=== PATIENT | female | born 1975 | race Caucasian/White ===

== ENCOUNTER 2021-02-19 19:44 | Emergency (ER) | payer SELFPAY ==
[~2021-02-19] VITALS: Ht 167.6 cm; Wt 109.1 kg
[2021-02-19] MEDS ORDERED: ADENOSINE 6 MG/2 ML VIAL. IV ONE ×2 (19:53→20:15)
[2021-02-19 20:08] LABS: HEMOGLOBIN 14.5 g/dL (12.0-15.5); RED BLOOD COUNT 5.25 x10^6/uL (3.50-5.40); RED CELL DISTRIBUTION WIDTH 15.7 % (11.5-14.5); WHITE BLOOD COUNT 17.8 x10^3/uL (4.0-11.0)
[2021-02-19 20:20] LABS: CALCIUM 8.9 mg/dL (8.5-10.1); CREATININE 1.2 mg/dL (0.6-1.0); MAGNESIUM 2.1 mg/dL (1.8-2.4); POTASSIUM 3.9 mmol/L (3.5-5.1)
--- NOTE | 2021-02-19 20:41 | ED.ADGEN ---
General Adult EDM: Chief Complaint: RAPID HEART RATE HPI: HPI: Patient is a 45-year-old female past medical history of SVT presents to the emergency room complaining of SVT. Patient has had 4 prior episodes of SVT. She followed up with a science tutor after the first time and they told her that there was likely not going to happen again. She has not seen a science tutor since that time. She currently does not have insurance. Patient states she started feeling her heart racing and then checked her pulse ox that she carries around with her and her heart rate was 212. She denies any chest pain or shortness of breath. She states that it does give her this feeling of anxiety. Review of Systems: Review of Systems: Complete ROS is negative unless otherwise documented in HPI Current Medications: Current Medications Medications (Trade) Dose Ordered Sig/Rubi Start Time Stop Time Status Last Admin Dose Admin Adenosine (Adenocard) 12 mg 1X ONCE 02/19/21 20:15 02/19/21 20:19 DC Allergies: Allergies: Allergies Coded Allergies Type Severity Reaction Last Updated Verified No Known Drug Allergies 02/19/21 No Physical Exam: PE: General: Awake, alert, NAD. Well Nourished, well hydrated. Cooperative HEENT: Atraumatic, EOMI, PERRL, airway patent, moist oral mucosa Neck: Supple, trachea midline Respiratory: CTA bilaterally, normal effort, no wheezing/crackles CV: Tachycardia, no murmur, cap refill <2 GI: Soft, nondistended, nontender, no masses MSK: No obvious deformities Skin: Warm, dry, intact Neuro: A&O x3, speech NL, sensory and motor grossly intact, no focal deficits Psych: Normal affect, normal mood, not suicidal or homicidal Current Patient Data: Labs: Laboratory Tests Test 02/19/21 19:52 White Blood Count 17.8 x10^3/uL (4.0-11.0) H Red Blood Count 5.25 x10^6/uL (3.50-5.40) Hemoglobin 14.5 g/dL (12.0-15.5) Hematocrit 43.0 % (36.0-47.0) Mean Corpuscular Volume 82 fL (79-100) Mean Corpuscular Hemoglobin 28 pg (25-35) Mean Corpuscular Hemoglobin Concent 34 g/dL (31-37) Red Cell Distribution Width 15.7 % (11.5-14.5) H Platelet Count 330 x10^3/uL (140-400) Sodium Level 135 mmol/L (136-145) L Potassium Level 3.9 mmol/L (3.5-5.1) Chloride Level 104 mmol/L (98-107) Carbon Dioxide Level 21 mmol/L (21-32) Anion Gap 10 (6-14) Blood Urea Nitrogen 16 mg/dL (7-20) Creatinine 1.2 mg/dL (0.6-1.0) H Estimated GFR (Cockcroft-Gault) 49.0 Glucose Level 125 mg/dL (70-99) H Calcium Level 8.9 mg/dL (8.5-10.1) Magnesium Level 2.1 mg/dL (1.8-2.4) Laboratory Tests 02/19/21 19:52 Laboratory Tests 02/19/21 19:52 Vital Signs: Vital Signs Date Time Temp Pulse Resp B/P (MAP) Pulse Ox O2 Delivery O2 Flow Rate FiO2 02/19/21 19:47 98.3 185 18 128/66 (86) 99 Room Air 98.3 EKG: EKG: [] Heart Score: C/O Chest Pain: N/A Risk Factors: Risk Factors: DM, Current or recent (<one month) smoker, HTN, HLP, family history of CAD, obesity. Risk Scores: Score 0 - 3: 2.5% MACE over next 6 weeks - Discharge Home Score 4 - 6: 20.3% MACE over next 6 weeks - Admit for Clinical Observation Score 7 - 10: 72.7% MACE over next 6 weeks - Early Invasive Strategies Radiology/Procedures: Radiology/Procedures: [] Course & Med Decision Making: Course & Med Decision Making Pertinent Labs and Imaging studies reviewed. (See chart for details) Patient is a 45-year-old female with a past medical history of SVT who rpesents to the Emergency Room complaining of SVT. Upon arrival, EKG was performed and shows bin patient is in SVT. Patient does have a history of SVT. On exam, patient is well-appearing with tachycardia. Patient was given adenosine and on re-evaluation patient is in normal sinus rhythm. CBC, BMP, BNP, troponin, EKG, and CXR were ordered to evaluate for causes of arrhythmia and to evaluate for end stage organ damage. Lab work was unremarkable other than an elevated white blood cell count. UA will be done to rule out UTI. Patient has not had any infectious symptoms. It is possible that this is a stress response. Patient will need to follow-up with a special science tutor to help with her repetitive episodes of SVT. Patient would like to go home. At this time she appears to be stable. Patient's test results and vitals while in the ED were fully reviewed and discussed with the patient. Patient is stable and at this time does not need admission to the hospital. We have discussed strict return precautions and the importance of following up with their Primary Care Physician. Patient stated understanding and was given an opportunity to ask any questions. Patient is in agreement with plan. Susan Disclaimer: Susan Disclaimer: This electronic medical record was generated, in whole or in part, using a voice recognition dictation system. Departure Departure Impression: Primary Impression: SVT (supraventricular tachycardia) Disposition: HOME / SELF CARE / HOMELESS Condition: STABLE Referrals: NO PCP (PCP) Patient Instructions: Supraventricular Tachycardia Additional Instructions: [facility]iology FABIAN STOVER MD Feb 19, 2021 20:41
[2021-02-19 20:49] VITALS: BP 108/58
== END 2021-02-19 21:20 | disposition home or self-care (01) ==
LOC: ER 19:44
DX: I47.1 Supraventricular tachycardia (principal)
CPT/HCPCS: 36415; 80048; 83735; 85027; 96374; 99285; J0153

== ENCOUNTER 2021-07-12 19:46 | Emergency (ER) | payer BC ==
[~2021-07-12] VITALS: Ht 167.6 cm; Wt 109.0 kg
--- NOTE | 2021-07-12 19:52 | PHYS DOC ---
Past Medical History Past Medical History: Other Additional Past Medical Histor: SVT Past Surgical History: Cholecystectomy, , Other Additional Past Surgical Histo: ORAL SURGERY Smoking Status: Never Smoker Alcohol Use: Rarely General Adult HPI: HPI: Patient is a 45 year old female who presents with palpitations and concern for SVT. She has a history of recurrent SVT. She is supposed to take oral metoprolol. She missed her dose yesterday. She does occasionally admit to missing doses of this medicine. 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 She denies chest pain or dyspnea. She denies dizziness or syncope. She denies nausea vomiting, diarrhea. She denies urinary symptoms. She denies fall, head injury, syncope, weakness. She responds well to IV adenosine. She tried vagal maneuvers prior to arrival, without success. Symptoms began about an hour prior to arrival. Review of Systems: Review of Systems: Constitutional: Denies fever or chills. [] Eyes: Denies change in visual acuity. [] HENT: Denies nasal congestion or sore throat. [] Respiratory: Denies cough or shortness of breath. [] Cardiovascular: Denies chest pain or edema. Reports palpitations. GI: Denies abdominal pain, nausea, vomiting, or diarrhea. : Denies urinary symptoms. Musculoskeletal: Denies back pain or joint pain. [] Integument: Denies rash. [] Neurologic: Denies headache, focal weakness or sensory changes. Denies dizziness. Endocrine: Denies polyuria or polydipsia. [] Lymphatic: Denies swollen glands. [] Psychiatric: Denies depression or anxiety. [] Heart Score: C/O Chest Pain: No Risk Factors: Risk Factors: DM, Current or recent (<one month) smoker, HTN, HLP, family history of CAD, obesity. Risk Scores: Score 0 - 3: 2.5% MACE over next 6 weeks - Discharge Home Score 4 - 6: 20.3% MACE over next 6 weeks - Admit for Clinical Observation Score 7 - 10: 72.7% MACE over next 6 weeks - Early Invasive Strategies Allergies: Allergies: Allergies Coded Allergies Type Severity Reaction Last Updated Verified No Known Drug Allergies 02/19/21 No Physical Exam: PE: Constitutional: Well developed, well nourished, no acute distress, non-toxic appearance. [] HENT: Normocephalic, atraumatic, mucous membranes are moist. Eyes: Clear are clear, anicteric. Neck: Trachea midline, no JVD, no tenderness Cardiovascular: Tachycardic, regular, rate in the 190s. Lungs & Thorax: Bilateral breath sounds clear to auscultation, no rales, rhonchi or wheezes. No stridor. No distress. Abdomen: Diminished soft, nondistended, nontender to palpation. Skin: Warm, dry, no erythema, no rash. [] Back: No tenderness, no CVA tenderness. [] Extremities: No tenderness, no cyanosis, no clubbing, ROM intact, no edema. No calf tenderness. Neurologic: Alert and oriented X 3, normal motor function, normal sensory function, no focal deficits noted. Speech is clear and fluent. Gait is steady. Psychologic: Affect normal, judgement normal, mood normal. She is pleasant and cooperative. EKG: EKG: EKG is interpreted at 1953 Rhythm is SVT Rate is 185 bpm No STEMI EKG is interpreted at 2021 Rhythm is sinus tachycardia Rate is 102 bpm No STEMI No acute ischemia Radiology/Procedures: Radiology/Procedures: [] Course & Med Decision Making: Course & Med Decision Making The patient is given 1 dose of IV adenosine bolus, 6 mg, which resolved her SVT. Her blood pressure remained stable. She tolerated this very well. Rhythm was sinus tachycardia, then sinus rhythm. She has no complaints. She still denies chest pain or dyspnea. She appears well. She is resting comfortably. I have discussed that I recommend she follow-up with outpatient cardiology. She reports that she is not need any refills of her metoprolol. I told her to continue to maintain compliance with this medication. She is given outpatient information for cardiology services here. She has no complaints, she feels comfortable going home. Strict return precautions are given. Dragon Disclaimer: Dragon Disclaimer: This electronic medical record was generated, in whole or in part, using a voice recognition dictation system. Departure Departure Impression: Primary Impression: Supraventricular tachycardia Disposition: HOME / SELF CARE / HOMELESS Condition: STABLE Referrals: NO PCP (PCP) RAFY ESPOSITO MD, DONALD J MD Patient Instructions: Supraventricular Tachycardia Additional Instructions: Return to the ER for chest pain, shortness of breath, vomiting, dehydration, passing out, weakness, fever of 100.4 or higher, or for any other concerns. If you have recurrent episodes of SVT, please also return to the ER. Continue to take your metoprolol as directed. Please follow-up with your outpatient primary care physician and outpatient cardiology. SERAFIN GOTTLIEB DO Jul 12, 2021 19:52
[2021-07-12] MEDS ORDERED: ADENOSINE 6 MG/2 ML VIAL. IV ONE ×3 (20:00→20:15)
[2021-07-12] MEDS ORDERED: IV NORMAL SALINE 1000ML BAG 1,000 ML IV ONE (20:00)
[2021-07-12 21:18] VITALS: BP 119/58
--- NOTE | 2021-07-13 00:21 | EKG ---
[facility] [address] [place] [address] Test Date: 2021-07-12 Test Time: 20:14:57 Pat Name: AUBRIE PETERSON Department: Room: Gender: F Milieu Counselor: : 1975 Requested By: SERAFIN GOTTLIEB Order Number: [id number] Reading MD: Chris Irby Measurements Intervals [place] Rate: 102 P: 19 [place]: 188 QRS: -23 QRSD: 74 T: 31 QT: 318 QTc: 418 Interpretive Statements SINUS TACHYCARDIA LEFTWARD AXIS Electronically Signed On 07-13-2021 7:13:01 CLINICAL PROJECT MANAGER by Chris Irby
--- NOTE | 2021-07-13 00:21 | EKG ---
[facility] [address] [place] [address] Test Date: 2021-07-12 Test Time: 19:54:47 Pat Name: AUBRIE PETERSON Department: Room: Gender: F Hall Manager: : 1975 Requested By: SERAFIN GOTTLIEB Order Number: [id number] Reading MD: Chris Irby Measurements Intervals [place] Rate: 185 P: [place]: QRS: -28 QRSD: 72 T: 32 QT: 256 QTc: 449 Interpretive Statements SUPRAVENTRICULAR TACHYCARDIA LEFTWARD AXIS Electronically Signed On 07-13-2021 7:13:16 ENGINEER GEOPH[employer]ICAL [employer]ORATORY by Chris Irby
== END 2021-07-12 21:48 | disposition home or self-care (01) ==
LOC: ER 19:46
DX: I47.1 Supraventricular tachycardia (principal); R00.2 Palpitations
CPT/HCPCS: 93005; 96361; 96374; 99285; J0153; J7030

== ENCOUNTER 2021-10-29 17:53 | Emergency (ER) | payer SELFPAY ==
[~2021-10-29] VITALS: Ht 170.2 cm; Wt 110.0 kg
[2021-10-29] MEDS ORDERED: ADENOSINE 6 MG/2 ML VIAL. IV ONE ×2 (18:05→18:15)
[2021-10-29] MEDS ORDERED: IV NORMAL SALINE 1000ML BAG 1,000 ML IV SCH (18:15)
[2021-10-29 18:22] LABS: BASO # 0.2 x10^3/uL (0.0-0.2); BASO % 1 % (0-3); EOS # 0.3 x10^3/uL (0.0-0.7); EOS % 2 % (0-3); HEMATOCRIT 41.6 % (36.0-47.0); HEMOGLOBIN 13.4 g/dL (12.0-15.5); LYMPH # 3.2 x10^3/uL (1.0-4.8); LYMPH % 22 % (24-48); MEAN CORPUSCULAR HEMOGLOBIN 27 pg (25-35); MEAN CORPUSCULAR HGB CONC 32 g/dL (31-37); MEAN CORPUSCULAR VOLUME 82 fL (79-100); MONO # 0.9 x10^3/uL (0.0-1.1); MONO % 6 % (0-9); NEUT # 10.3 x10^3/uL (1.8-7.7); NEUT % 69 % (31-73); PLATELET COUNT 300 x10^3/uL (140-400); RED BLOOD COUNT 5.06 x10^6/uL (3.50-5.40); RED CELL DISTRIBUTION WIDTH 16.2 % (11.5-14.5); WHITE BLOOD COUNT 14.9 x10^3/uL (4.0-11.0)
[2021-10-29 18:25] LABS: CALCIUM 8.6 mg/dL (8.5-10.1); GFR 60.2; POTASSIUM 3.8 mmol/L (3.5-5.1)
[2021-10-29 18:31] LABS: ALBUMIN 2.9 g/dL (3.4-5.0); ALBUMIN/GLOBULIN RATIO 0.7 (1.0-1.7); MAGNESIUM 1.7 mg/dL (1.8-2.4); TOTAL BILIRUBIN 0.2 mg/dL (0.2-1.0); TOTAL PROTEIN 6.8 g/dL (6.4-8.2)
--- NOTE | 2021-10-29 18:35 | PHYS DOC ---
Past Medical History Past Medical History: Other Additional Past Medical Histor: SVT Past Surgical History: No Surgical History, Cholecystectomy, Additional Past Surgical Histo: ORAL SURGERY Smoking Status: Never Smoker Alcohol Use: Rarely General Adult EDM: Chief Complaint: Palpitations HPI: HPI: Patient is a 46 year old female who presents with complaint of high heart rate. Symptoms started today at 1715 after getting out of the shower while getting ready for work. Patient has history of SVT and is currently on metoprolol 100mg daily. Follow with a tube blower in [place], [place]. Denies chest pain, fever, cough, nausea, or diarrhea. Notes lightheadedness. Patient states that she took and extra dose of metoprolol after symptoms started and tried vagal maneuvers at home but notes no improvement. Review of Systems: Review of Systems: Constitutional: Denies fever or chills. [] Eyes: Denies change in visual acuity. [] HENT: Denies nasal congestion or sore throat. [] Respiratory: Shortness of breath, denies cough. [] Cardiovascular: Palpitations, denies chest pain. [] GI: Denies abdominal pain, nausea, vomiting, bloody stools or diarrhea. [] : Denies dysuria. [] Musculoskeletal: Denies back pain or joint pain. [] Integument: Denies rash. [] Neurologic: Denies headache, focal weakness or sensory changes. [] Endocrine: Denies polyuria or polydipsia. [] Heart Score: C/O Chest Pain: No Risk Factors: Risk Factors: DM, Current or recent (<one month) smoker, HTN, HLP, family history of CAD, obesity. Risk Scores: Score 0 - 3: 2.5% MACE over next 6 weeks - Discharge Home Score 4 - 6: 20.3% MACE over next 6 weeks - Admit for Clinical Observation Score 7 - 10: 72.7% MACE over next 6 weeks - Early Invasive Strategies Current Medications: Current Medications Medications (Trade) Dose Ordered Sig/Rubi Start Time Stop Time Status Last Admin Dose Admin Adenosine (Adenocard) 6 mg 1X ONCE 10/29/21 18:15 10/29/21 18:16 DC Sodium Chloride 1,000 ml @ 1,000 mls/hr Q1H 10/29/21 18:15 10/29/21 19:14 Allergies: Allergies: Allergies Coded Allergies Type Severity Reaction Last Updated Verified No Known Drug Allergies 02/19/21 No Physical Exam: PE: Constitutional: Well developed, well nourished, obese, appears in mild discomfort. [] HENT: Normocephalic, atraumatic, bilateral external ears normal, oropharynx moist, no oral exudates, nose normal. [] Eyes: PERRLA, EOMI, conjunctiva normal, no discharge. [] Neck: Normal range of motion, no tenderness, supple, no stridor. [] Cardiovascular: Tachycardia, regular rhythm, no murmurs or rubs. [] Lungs & Thorax: Bilateral breath sounds clear to auscultation [] Abdomen: Bowel sounds normal, soft, no tenderness, no masses, no pulsatile masses. [] Skin: Warm, dry, no erythema, no rash. [] Back: No tenderness, no CVA tenderness. [] Extremities: No tenderness, no cyanosis, no clubbing, ROM intact, no edema. [] Neurologic: Alert and oriented X 3, normal motor function, normal sensory function, no focal deficits noted. [] Current Patient Data: Labs: Laboratory Tests Test 10/29/21 18:00 White Blood Count 14.9 x10^3/uL Red Blood Count 5.06 x10^6/uL Hemoglobin 13.4 g/dL Hematocrit 41.6 % Mean Corpuscular Volume 82 fL Mean Corpuscular Hemoglobin 27 pg Mean Corpuscular Hemoglobin Concent 32 g/dL Red Cell Distribution Width 16.2 % Platelet Count 300 x10^3/uL Neutrophils (%) (Auto) 69 % Lymphocytes (%) (Auto) 22 % Monocytes (%) (Auto) 6 % Eosinophils (%) (Auto) 2 % Basophils (%) (Auto) 1 % Neutrophils # (Auto) 10.3 x10^3/uL Lymphocytes # (Auto) 3.2 x10^3/uL Monocytes # (Auto) 0.9 x10^3/uL Eosinophils # (Auto) 0.3 x10^3/uL Basophils # (Auto) 0.2 x10^3/uL Sodium Level 138 mmol/L Potassium Level 3.8 mmol/L Chloride Level 103 mmol/L Carbon Dioxide Level 23 mmol/L Anion Gap 12 Blood Urea Nitrogen 12 mg/dL Creatinine 1.0 mg/dL Estimated GFR (Cockcroft-Gault) 60.2 BUN/Creatinine Ratio 12 Glucose Level 173 mg/dL Calcium Level 8.6 mg/dL Magnesium Level 1.7 mg/dL Total Bilirubin 0.2 mg/dL Aspartate Amino Transf (AST/SGOT) 9 U/L Alanine Aminotransferase (ALT/SGPT) 17 U/L Alkaline Phosphatase 55 U/L Troponin I High Sensitivity 5 ng/L Total Protein 6.8 g/dL Albumin 2.9 g/dL Albumin/Globulin Ratio 0.7 Current Medications Medications (Trade) Dose Ordered Sig/Rubi Route PRN Reason Start Time Stop Time Status Last Admin Dose Admin Adenosine (Adenocard) 6 mg STK-MED ONCE IV 10/29/21 18:05 10/29/21 18:06 DC Adenosine (Adenocard) 6 mg 1X ONCE IV 10/29/21 18:15 10/29/21 18:16 DC 10/29/21 18:27 Sodium Chloride 1,000 ml @ 1,000 mls/hr Q1H IV 10/29/21 18:15 10/29/21 19:14 DC 10/29/21 18:28 Magnesium Sulfate/ Dextrose 100 ml @ 100 mls/hr 1X ONCE IV 10/29/21 19:00 10/29/21 19:59 10/29/21 19:04 Vital Signs: Vital Signs Date Time Temp Pulse Resp B/P (MAP) Pulse Ox O2 Delivery O2 Flow Rate FiO2 10/29/21 17:56 98.1 22 119/58 (78) Room Air 98.1 EKG: EKG: EKG at 1800 interpreted by me: HR 171, SVT, leftward axis EKG at 1819 post adenosine administration interpreted by me: HR 92, sinus rhythm, leftward axis, no acute ST/T abnormalities present.[] Radiology/Procedures: Radiology/Procedures: [facility] [address] [place] [address] IMAGING REPORT Signed PATIENT: AUBRIE PETERSON: [id number] : 1975 LOCATION: ER AGE: 46 SEX: F EXAM STATUS: PRE ER ORD. PHYSICIAN: MT SHANKS MD REASON: tachycardia PROCEDURE: PORTABLE CHEST 1V XR CHEST 1V History: Reason: tachycardia / Spl. Instructions: / History: Comparison: None. Findings: No consolidation or pleural effusion. Normal heart size. No pneumothorax. Pads projecting over the chest. Impression: 1. No acute cardiopulmonary process. Electronically signed by: Geo Wasserman DO (10/29/2021 7:24 PM) [facility] DICTATED and SIGNED BY: GEO WASSERMAN DO DATE: 10/29/21 [id number] [] Course & Med Decision Making: Course & Med Decision Making Pertinent Labs and Imaging studies reviewed. (See chart for details) 1815: Patient was placed on continuous cardiac monitoring and IV access was obtained. Patient administered adenosine 6 mg IV with successful conversion to sinus rhythm. Patient states she is feeling much better. Awaiting lab and imaging results. 2030: Patient was found to have low potassium and was given 1 g of magnesium sulfate IV. Awaiting second troponin to ensure normal delta. Patient however states that she needs to leave the emergency department before this lab can be taken as she is planning to go to work. The patient was informed of potential risks of leaving the emergency department prematurely before all lab work to be completed so as to rule out an acute myocardial injury. Patient voices understanding of this as well as the risks including and disability and states that she will leave AGAINST MEDICAL ADVICE. Advised patient to contact her tube blower tomorrow for follow-up. Recommend return to the emergency department for any worsening symptoms. Patient voiced understanding and in agreement with treatment plan. [] Dragon Disclaimer: Dragon Disclaimer: This electronic medical record was generated, in whole or in part, using a voice recognition dictation system. Departure Departure Impression: Primary Impression: Supraventricular tachycardia Disposition: LEFT AGAINST MEDICAL ADVICE Condition: STABLE Referrals: NO PCP (PCP) MT SHANKS MD Oct 29, 2021 18:35
[2021-10-29] MEDS ORDERED: MAGNESIUM SULFATE 1GM 100 ML IV ONE (19:00)
--- NOTE | 2021-10-29 19:27 | RAD ---
XR CHEST 1V History: Reason: tachycardia / Spl. Instructions: / History: Comparison: None. Findings: No consolidation or pleural effusion. Normal heart size. No pneumothorax. Pads projecting over the ch est. Impression: 1. No acute cardiopulmonary process. Electronically signed by: Geo Major DO (10/29/2021 7:24 PM) [facility]
[2021-10-29 20:10] VITALS: BP 104/68
--- NOTE | 2021-10-30 06:14 | EKG ---
[facility] [address] [place] [address] Test Date: 2021-10-29 Test Time: 18:19:26 Pat Name: AUBRIE PETERSON Department: Room: Gender: F Install Technician: : 1975 Requested By: MT SHANKS Order Number: [id number] Reading MD: Chris Irby Measurements Intervals [place] Rate: 92 P: 32 [place]: 192 QRS: -18 QRSD: 82 T: 28 QT: 336 QTc: 420 Interpretive Statements SINUS RHYTHM LEFT ATRIAL ABNORMALITY LEFTWARD AXIS ABNORMAL ECG Electronically Signed On 10-30-2021 8:24:38 STAIN REMOVER by Chris Irby
--- NOTE | 2021-10-30 07:54 | EKG ---
[facility] [address] [place] [address] Test Date: 2021-10-29 Test Time: 18:00:42 Pat Name: AUBRIE PETERSON Department: Room: Gender: F Dining Room Server: : 1975 Requested By: MT SHANKS Order Number: [id number] Reading MD: Chris Irby Measurements Intervals [place] Rate: 171 P: [place]: QRS: -3 QRSD: 70 T: 36 QT: 264 QTc: 447 Interpretive Statements SUPRAVENTRICULAR TACHYCARDIA LEFTWARD AXIS Electronically Signed On 10-30-2021 8:25:15 IT SPECIALIST by Chris Irby
== END 2021-10-29 20:18 | disposition left against medical advice (07) ==
LOC: ER 17:53
DX: I47.1 Supraventricular tachycardia (principal); R06.02 Shortness of breath; Z90.49 Acquired absence of other specified parts of digestive tract
CPT/HCPCS: 36415; 71045; 80053; 83735; 84484; 85025; 93005; 96361; 96365; 96375; 99285; J0153; J3475; J7030